=== PATIENT | female | born 1955 | race Caucasian/White ===

== ENCOUNTER → 2016-08-28 | Outpatient (CLI) | payer OTHER ==
[~2016-08-28] MED LIST: CALCIUM CARBONATE; GLUCOPHAGE1000 MG PO; MULTIPLE VITAMI1 CAP PO; MVI; NORCO 325 MG-51 TAB PO; PROZAC 20MG20 MG PO; TOPROL; TOPROL XL 25MG25 MG; ULTRAM 50MG TAB50 MG PO; VITAMIN C1 TAB PO; WELLBUTRIN SR150 M1 PO; ZOFRAN 4MG T4 MG/TAB PO; [UNRECOGNIZED DRUG - OTHER]
== END ==
LOC: MC.RAD 13:34
DX: Z12.31 Encounter for screening mammogram for malignant neoplasm of breast (principal)

== ENCOUNTER → 2017-09-18 | Outpatient (CLI) | payer BC | LOC: MC.RAD 10:41 | DX: Z12.31 Encounter for screening mammogram for malignant neoplasm of breast (principal) ==

== ENCOUNTER → 2018-11-21 | Outpatient (CLI) | payer BC | LOC: MC.RAD 08:48 | DX: Z12.31 Encounter for screening mammogram for malignant neoplasm of breast (principal) ==

== ENCOUNTER → 2019-11-20 | Outpatient (CLI) | payer MEDICARE, OTHER | LOC: MC.RAD 08:18 | DX: Z12.31 Encounter for screening mammogram for malignant neoplasm of breast (principal) ==

== ENCOUNTER 2020-08-04 07:54 | Day surgery (SDC) | payer MEDICARE, OTHER ==
[~2020-08-04] VITALS: Ht 157.5 cm; Wt 65.4 kg
[~2020-08-04 07:54] MED LIST changes: -MULTIPLE VITAMI1 CAP PO; +MULTIPLE VITAMI1 TA5 PO
[2020-08-04] MEDS ORDERED: PROZAC40 MG PO (08:15)
[2020-08-04] MEDS ORDERED: TOPROL XL 50MG50 MG PO (08:16)
[2020-08-04] MEDS ORDERED: IMITREX100 MG PO (08:17)
[2020-08-04] MEDS ORDERED: VITAMIN D31000 IU PO (08:19)
[2020-08-04] MEDS ORDERED: BACTROBAN15 GM TOP (08:19)
[2020-08-04] MEDS ORDERED: HAIRSKINNAILS PO (08:20)
[2020-08-04 08:24] VITALS: BP 120/77; PULSE 65; TEMP 97.7
[2020-08-04 10:52] VITALS: BP 112/73; PULSE 76; TEMP 97.8
--- NOTE | 2020-08-04 10:52 | NUR ---
The patient arrived back to [facility] from the operating room at this time. The patient appears alert and oriented and denies any pain or nausea at this time. The patient's post operative vital signs were started at this time. The patient's dressing to her right foot appears clean, dry and intact. The patient has a post op shoe in place to her right foot. The patient's is at her bedside at this time. The patient agrees to try some ice water at this time. Will continue to monitor the patient.
[2020-08-04 11:07] VITALS: BP 110/67; PULSE 72
--- NOTE | 2020-08-04 11:07 | NUR ---
Dr. Ramirez was at the patient's bedside speaking with her and her regarding the findings of the procedure. The patient appears to be tolerating the water well and requests to try a muffin. The patient's vital signs appear stable. Will continue to monitor the patient.
[2020-08-04 11:25] VITALS: BP 104/74; PULSE 62
--- NOTE | 2020-08-04 11:25 | NUR ---
Discharge instructions were reviewed with the patient and her at this time. They both verbalized understanding and have no questions for the nurse at this time. The patient's IV to her left hand was removed and a pressure dressing was applied to the site. The nurse instructed the patient to get dressed and notify the she is ready to be escorted out.
--- NOTE | 2020-08-04 11:35 | NUR ---
The patient was escorted out via wheelchair to a private vehicle by NERISSA Clarke. The patient's belongings and discharge paperwork were sent with her. The patient's is present to drive her home.
== END 2020-08-04 11:35 | disposition home or self-care (01) ==
LOC: SDCO 07:54
DX: M20.11 Hallux valgus (acquired), right foot (principal); M21.611 Bunion of right foot; M81.0 Age-related osteoporosis without current pathological fracture; M89.9 Disorder of bone, unspecified; M79.674 Pain in right toe(s); M19.90 Unspecified osteoarthritis, unspecified site; I10 Essential (primary) hypertension; G43.909 Migraine, unspecified, not intractable, without status migrainosus; F41.9 Anxiety disorder, unspecified; F32.9 Major depressive disorder, single episode, unspecified; F17.210 Nicotine dependence, cigarettes, uncomplicated; Z88.6 Allergy status to analgesic agent; Z91.010 Allergy to peanuts; Z88.5 Allergy status to narcotic agent; Z79.899 Other long term (current) drug therapy; Z90.89 Acquired absence of other organs; Z90.49 Acquired absence of other specified parts of digestive tract; Z20.822 Contact with and (suspected) exposure to COVID-19; Z83.3 Family history of diabetes mellitus
CPT/HCPCS: J0690; J2704; J3010; J7120

== ENCOUNTER → 2020-11-26 | Outpatient (CLI) | payer MEDICARE, OTHER ==
[~2020-11-26] MED LIST changes: +BACTROBAN15 GM TOP; +HAIRSKINNAILS PO; +IMITREX100 MG PO; +PROZAC40 MG PO; +TOPROL XL 50MG50 MG PO; +VITAMIN D31000 IU PO
== END ==
LOC: MC.RAD 09:54
DX: Z12.31 Encounter for screening mammogram for malignant neoplasm of breast (principal)

== ENCOUNTER → 2021-12-16 | Outpatient (CLI) | payer MEDICARE, OTHER | LOC: COL.RAD 14:18 | DX: Z12.2 Encounter for screening for malignant neoplasm of respiratory organs (principal); J43.9 Emphysema, unspecified; K44.9 Diaphragmatic hernia without obstruction or gangrene; R91.1 Solitary pulmonary nodule; F17.210 Nicotine dependence, cigarettes, uncomplicated; Z90.49 Acquired absence of other specified parts of digestive tract ==

== ENCOUNTER → 2022-01-13 | Outpatient (CLI) | payer MEDICARE, OTHER | LOC: MC.RAD 07:18 | DX: Z12.31 Encounter for screening mammogram for malignant neoplasm of breast (principal) ==

== ENCOUNTER → 2022-08-28 | Outpatient (CLI) | payer MEDICARE, OTHER | LOC: COL.LAB 13:33 | DX: Z01.89 Encounter for other specified special examinations (principal) ==

== ENCOUNTER → 2022-08-28 | Outpatient (CLI) | payer MEDICARE, OTHER | LOC: COL.LAB 11:19 | DX: I10 Essential (primary) hypertension (principal) ==